=== PATIENT | male | born 1985 | race Caucasian/White ===

== ENCOUNTER 2017-05-25 11:49 | Emergency (ER) | payer SELFPAY ==
[2017-05-25 12:04] VITALS: RESP 18; O2SAT 98
--- NOTE | 2017-05-25 12:34 | EDPHY ---
H & P Time Seen by Provider: 05/25/17 12:15 HPI/ROS: CHIEF COMPLAINT: "I am withdrawing" HISTORY OF PRESENT ILLNESS: 31-year-old male [facility] requesting [facility] and with an like to return to the [facility]. Denies suicidal or homicidal ideation. Denies hallucination. Last drink of alcohol 2:00 a.m. today. Denies seizure. PHYSICAL EXAM (Prior to examination, patient consented to physical exam, hands were washed and my usual and customary physical exam procedures followed) 1) GENERAL: Well-developed, well-nourished, alert and oriented. Appears to be in no acute distress. 2) HEAD: Normocephalic 3) HEENT: sclera anicteric 4) LUNGS: Breathing comfortably. 5) SKIN: normal coloration 6) MUSCULOSKELETAL: tremulous 7) NEUROLOGIC: Answering questions appropriately a and O x3 Smoking Status: Current every day smoker Constitutional: Initial Vital Signs Temperature (C) 37 C 05/25/17 12:00 Heart Rate 67 05/25/17 12:00 Respiratory Rate 18 05/25/17 12:00 Blood Pressure 146/96 H 05/25/17 12:00 O2 Sat (%) 98 05/25/17 12:00 O2 Delivery Mode Room Air Allergies/Adverse Reactions: No Known Allergies Allergy (Verified 05/25/17 12:01) Home Medications: Medication Instructions Recorded NK [No Known Home Meds] 07/13/16 MDM/Departure - MDM ED Course/Re-evaluation: Doubt delirium tremens. Plan will be Librium and discharged back to the [facility] - Depart Disposition: Home, Routine, Self-Care Clinical Impression: Alcohol withdrawal Qualifiers: Complication of substance-induced condition: uncomplicated Qualified Code(s): F10.230 - Alcohol dependence with withdrawal, uncomplicated Condition: Good Instructions: Alcohol Withdrawal (ED), Chlordiazepoxide (By mouth) Additional Instructions: Return to the emergency department if you develop seizures, hallucination or any other symptoms that concern you Referrals: [facility] [Outside] - 1 day without fail
[2017-05-25] MEDS: CHLORDIAZEPOXIDE 25MG PREPK#6 BTL TAKEHOME ONE (12:49)
[2017-05-25] MEDS: chlordiazePOXIDE 25 MG CAP PO ONE (12:49)
[2017-05-25 13:04] VITALS: BP 138/88; PULSE 66; TEMP 98.2
== END 2017-05-25 13:19 | disposition home or self-care (01) ==
DX: F10.230 Alcohol dependence with withdrawal, uncomplicated (principal); F17.200 Nicotine dependence, unspecified, uncomplicated

== ENCOUNTER 2018-12-19 19:36 | Emergency (ER) | payer MEDICAID | END 2018-12-19 20:51 ==